=== PATIENT | male | born 1955 | race Caucasian/White ===

== ENCOUNTER 2019-02-26 12:26 | Day surgery (SDC) | payer OTHER ==
[~2019-02-26] VITALS: Ht 182.9 cm; Wt 116.6 kg
--- NOTE | 2019-02-26 14:18 | NUR ---
02/26/19 1418 Yari Riggins 5MM SIGMOID COLON POLYP REMOVED WITH COLD SNARE; UNABLE TO RETRIEVE POLYP. DR. ESTEFANIA RODRIGUEZ.
== END 2019-02-26 14:39 | disposition home or self-care (01) ==
LOC: ORSCSDS 12:26
PROVIDERS: Internal Medicine Gastroenterology
PROC: 0DBN8ZX Excision of Sigmoid Colon, Via Natural or Artificial Opening Endoscopic, Diagnostic (ICD-10-PCS; principal; 2019-02-26 13:45)
DX: Z12.11 Encounter for screening for malignant neoplasm of colon (principal); D37.4 Neoplasm of uncertain behavior of colon; K57.30 Diverticulosis of large intestine without perforation or abscess without bleeding; G47.33 Obstructive sleep apnea (adult) (pediatric); E66.01 Morbid (severe) obesity due to excess calories; Z68.36 Body mass index [BMI] 36.0-36.9, adult; Z79.899 Other long term (current) drug therapy
CPT/HCPCS: J2704; J7120

== ENCOUNTER 2021-11-25 08:47 | Day surgery (SDC) | payer OTHER ==
[~2021-11-25] VITALS: Ht 182.9 cm; Wt 116.3 kg
[~2021-11-25 08:47] MED LIST: ALEVE220 MG PO; ALLO100 PO; Prinivil10 MG PO
--- NOTE | 2021-11-25 10:13 | NUR ---
PT STATES HAVING NO ADVERSE REACTIONS TO ANESTHESIA IN PAST SURGERIES, BUT WANTS IT NOTED THAT "4-5 HOURS AFTER SURGERY, I SWEAT IT OUT AND DRENCH MY CLOTHES AND THE BED BUT NOTHIGN BAD HAPPENS". PT ALSO STATES WILL BRING CPAP MACHINE FROM HOME TO SLEEP WITH ON 11/24/21.
--- NOTE | 2021-11-25 15:25 | NUR ---
TRANSFER OF CARE PATIENT ALERT AND ORIENTED. TOLERATING PO WATER AND CRACKERS. DENIES NAUSEA/VOMITING. DENIES SHORTNESS OF BREATH. SPINAL, SENSATION ABOVE KNEE. DENIES PAIN AT THIS TIME. AQUACEL, MARTHA WRAP, REINA HOSE, SCDS, AND POLAR PACK IN PLACE TO RIGHT LEG. HOME CPAP IN ROOM. PLAN TO DISCHARGE HOME 11/26/21 WHEN PATIENT CLEARS THERAPY. WILL REPORT TO RN ASSUMING CARE AT THIS TIME.
--- NOTE | 2021-11-25 16:29 | NUR ---
THIS NURSE TOOK OVER CARE AT 1500 TODAY.
--- NOTE | 2021-11-26 05:27 | NUR ---
LIKE TO SLEEP A LITTLE LONGER."
[2021-11-26 05:32] LABS: BASOPHILS ABSOLUTE AUTO 0.03 K/mm3 (0.00-0.23); BASOPHILS PERCENT AUTO 0 % (0-2); EOSINOPHILS PERCENT AUTO 0 % (0-6); Hematocrit 39.9 % (37.0-53.0); Hemoglobin 13.7 g/dL (13.5-17.5); IMMATURE GRAN PERCENT AUTO 1 % (0-1); LYMPHOCYTES ABSOLUTE AUTO 1.04 K/mm3 (0.84-5.20); LYMPHOCYTES PERCENT AUTO 8 % (21-46); MONOCYTES ABSOLUTE AUTO 1.21 K/mm3 (0.16-1.47); MONOCYTES PERCENT AUTO 10 % (4-13); Mean Corpuscular HGB 31.5 pg (26.0-34.0); Mean Corpuscular HGB Conc 34.3 g/dL (31.5-36.5); Mean Corpuscular Volume 92 fL (80-100); Mean Platelet Volume 9.7 fL (9.1-12.4); NEUTROPHILS PERCENT AUTO 81 % (41-73); Platelet Count 216 K/mm3 (150-400); RDW Coefficient Variation 12.1 % (11.7-14.2); RDW Standard Deviation 40.7 fL (35.1-46.3); Red Blood Cell Count 4.35 M/mm3 (4.30-5.90); White Blood Cell Count 12.58 K/mm3 (4.00-11.30)
[2021-11-26 06:34] LABS: Anion Gap 10 mmol/L (6-16); Blood Urea Nitrogen 15 mg/dL (8-24); Bun/Creatinine Ratio 17.2 (12.0-20.0); CO2, Blood 24 mmol/L (21-32); Calcium, Blood 8.9 mg/dL (8.5-10.1); Chloride, Blood 105 mmol/L (98-108); Creatinine, Blood 0.87 mg/dL (0.60-1.20); Glomerular Filtration Rate >60 (60-); Glucose, Blood 129 mg/dL (70-99); Magnesium, Blood 2.1 mg/dL (1.6-2.4); Potassium, Blood 4.1 mmol/L (3.5-5.5); Sodium, Blood 139 mmol/L (136-145)
--- NOTE | 2021-11-26 08:07 | NUR ---
11/26/21 0807 Hue Keane VERIFICATIONS: EDIT CHART.
[2021-11-26] MEDS ORDERED: ASPI81CH PO (09:09)
[2021-11-26] MEDS ORDERED: OXYC5 PO (09:10)
[2021-11-26] MEDS ORDERED: SULTRIDS PO (09:10)
[2021-11-26] MEDS ORDERED: PROM25 PO (09:10)
--- NOTE | 2021-11-26 10:11 | NUR ---
DISCHARGE POD 1 R TKA [id number], PT CLEARED THERAPY. HE REPORTS PAIN TOLERABLE PER EMAR. DRESSING REMAINS CDI. TOLERATING PO. IV REMOVED PRIOR TO DISCHARGE. ALL INSTRUCTIONS GONE OVER WITH PATIENT, ALL BELONGINGS SENT.
== END 2021-11-26 09:34 | disposition home or self-care (01) ==
LOC: ORSCMMR 08:47 → ORD 10:45 → ORSCMMR 10:45 → ORD 11:00 → SURS 13:43 → ORSCMMR 11-26 09:34
PROVIDERS: Orthopaedic Surgery
PROC: 0SRC0J9 Replacement of Right Knee Joint with Synthetic Substitute, Cemented, Open Approach (ICD-10-PCS; principal; 2021-11-25 10:00)
PROC: 8E0YXBZ Computer Assisted Procedure of Lower Extremity (ICD-10-PCS; principal; 2021-11-25 10:00)
DX: M17.11 Unilateral primary osteoarthritis, right knee (principal); I10 Essential (primary) hypertension; G47.33 Obstructive sleep apnea (adult) (pediatric); Z85.46 Personal history of malignant neoplasm of prostate; Z79.899 Other long term (current) drug therapy; E66.9 Obesity, unspecified; Z68.34 Body mass index [BMI] 34.0-34.9, adult
CPT/HCPCS: 36415; 73560-RT; 80048; 83735; 85025; 97110; 97161; A9270; C1713; C1776; J0171; J0690; J0735; J1100; J1885; J2250; J2704; J2795; J3010; J7120

== ENCOUNTER 2024-02-13 12:55 | Day surgery (SDC) | payer OTHER ==
[~2024-02-13] VITALS: Ht 182.9 cm; Wt 117.0 kg
[~2024-02-13 12:55] MED LIST changes: +ASPI81CH PO; +Atropine Sulfate 0.1 MG/ML 10ML SYR ONE; +Glycopyrrolate 0.2 MG/ML 1MLVIAL ONE; +Hyoscyamine Sulfate 0.5 MG/ML 1ML Amp ONE; +Lactated Ringer's 1,000 ML IV ONE; +Lidocaine 2% 5 ML SDV ONE; +Lidocaine HCl/Pf 1% 5 ML VIAL ONE; +Methylene Blue 1% 100 MG/10 ML VIAL ONE; +OXYC5 PO; +Ondansetron HCl 2 MG / ML 2ML Vial ONE; +PROM25 PO; +SULTRIDS PO; +ePHEDrine Sulfate 50 MG/ML 1ML Injection ONE
[2024-02-13] MEDS ORDERED: propofoL 50 ML IV ONE ×2 (14:54→15:23)
[2024-02-13] MEDS ORDERED: Lactated Ringer's 1,000 ML IV ONE (15:07)
[2024-02-13 16:12] VITALS: BP 118/83
== END 2024-02-13 16:14 | disposition home or self-care (01) ==
LOC: ORSCSDS 12:55
PROVIDERS: Internal Medicine Gastroenterology
PROC: 0DBN8ZX Excision of Sigmoid Colon, Via Natural or Artificial Opening Endoscopic, Diagnostic (ICD-10-PCS; principal; 2024-02-13 14:15)
DX: Z12.11 Encounter for screening for malignant neoplasm of colon (principal); K63.5 Polyp of colon; K57.30 Diverticulosis of large intestine without perforation or abscess without bleeding; Z86.010 Personal history of colon polyps; I10 Essential (primary) hypertension; G47.33 Obstructive sleep apnea (adult) (pediatric); Z85.46 Personal history of malignant neoplasm of prostate; Z79.899 Other long term (current) drug therapy
CPT/HCPCS: J0461; J1980; J2001; J2405; J2704; J7120; Q9968

== ENCOUNTER 2025-06-26 12:47 | Day surgery (SDC) | payer OTHER ==
[~2025-06-26] VITALS: Ht 182.9 cm; Wt 121.3 kg
[~2025-06-26 12:47] MED LIST changes: -Atropine Sulfate 0.1 MG/ML 10ML SYR ONE; +Balanced Salt Epinephrine Irrigation Solution 500 mL IR SCH; -Glycopyrrolate 0.2 MG/ML 1MLVIAL ONE; -Hyoscyamine Sulfate 0.5 MG/ML 1ML Amp ONE; -Lactated Ringer's 1,000 ML IV ONE; -Lidocaine 2% 5 ML SDV ONE; -Lidocaine HCl/Pf 1% 5 ML VIAL ONE; -Methylene Blue 1% 100 MG/10 ML VIAL ONE; +Moxifloxacin HCL 0.5 MG/0.1 ML 0.4MLSYR LEFTEYE SCH; +Moxifloxacin HCL 0.5 MG/0.1 ML 0.4MLSYR RIGHTEYE SCH; +Ondansetron 4 MG SoluTab MM PRN; -Ondansetron HCl 2 MG / ML 2ML Vial ONE; +PHENYLEPHRINE\\TROPICAMIDE\\TETRACAINE OPHTHALMIC DILATING SOLN LEFTEYE PRN; +PHENYLEPHRINE\\TROPICAMIDE\\TETRACAINE OPHTHALMIC DILATING SOLN RIGHTEYE PRN; +Povidone-Iodine 450 DROP/30 ML Solution LEFTEYE SCH; +Povidone-Iodine 450 DROP/30 ML Solution ONE; +Povidone-Iodine 450 DROP/30 ML Solution RIGHTEYE SCH; +Tetracaine HCl/Pf 0.5% Opth Soln 4 ml ONE; +Triamcinolone Inj Susp 40 MG / ML 1ML Vial INJ SCH; +Triamcinolone Inj Susp 40 MG / ML 1ML Vial ONE; -ePHEDrine Sulfate 50 MG/ML 1ML Injection ONE
--- NOTE | 2025-06-26 13:26 | NUR ---
06/26/25 1326 Sylvia Burnett PT STATES ANXIETY LEVEL IS 1/10 IN PREOP CALL LIGHT IN HAND PT IS ON CONTINUOUS PULSE OX
--- NOTE | 2025-06-26 13:51 | NUR ---
06/26/25 1351 Idalia Gamble 1348 BP:147/81 HR:79 O2:100% RESP:16
[2025-06-26 14:11] VITALS: BP 145/92
--- NOTE | 2025-06-26 14:15 | NUR ---
06/26/[address] AT BEDSIDE
== END 2025-06-26 14:31 | disposition home or self-care (01) ==
LOC: ORSCSDS 12:47
PROVIDERS: Ophthalmology
PROC: 08RJ3JZ Replacement of Right Lens with Synthetic Substitute, Percutaneous Approach (ICD-10-PCS; principal; 2025-06-26 14:30)
DX: H25.813 Combined forms of age-related cataract, bilateral (principal); H52.4 Presbyopia; H40.019 Open angle with borderline findings, low risk, unspecified eye; I10 Essential (primary) hypertension; Z79.899 Other long term (current) drug therapy
CPT/HCPCS: A9270; J3301; V2632

== ENCOUNTER 2025-07-03 07:01 | Day surgery (SDC) | payer OTHER ==
[~2025-07-03] VITALS: Ht 182.9 cm; Wt 121.1 kg
[~2025-07-03 07:01] MED LIST changes: -Balanced Salt Epinephrine Irrigation Solution 500 mL IR SCH; -Moxifloxacin HCL 0.5 MG/0.1 ML 0.4MLSYR LEFTEYE SCH; -Moxifloxacin HCL 0.5 MG/0.1 ML 0.4MLSYR RIGHTEYE SCH; -Ondansetron 4 MG SoluTab MM PRN; -PHENYLEPHRINE\\TROPICAMIDE\\TETRACAINE OPHTHALMIC DILATING SOLN LEFTEYE PRN; -PHENYLEPHRINE\\TROPICAMIDE\\TETRACAINE OPHTHALMIC DILATING SOLN RIGHTEYE PRN; -Povidone-Iodine 450 DROP/30 ML Solution LEFTEYE SCH; -Povidone-Iodine 450 DROP/30 ML Solution RIGHTEYE SCH; -Triamcinolone Inj Susp 40 MG / ML 1ML Vial INJ SCH
--- NOTE | 2025-07-03 07:46 | NUR ---
07/03/25 0746 Sylvia Burnett PT STATES ANXIETY LEVEL IN PREOP IS 0/10 PT HAS CONTINUOUS PULSE ON PT HAS CALL LIGHT IN HAND
[2025-07-03] MEDS ORDERED: Ondansetron 4 MG SoluTab MM PRN (08:20)
--- NOTE | 2025-07-03 08:33 | NUR ---
07/03/25 0833 Idalia Gamble 0830 BP:139/82 HR:66 O2:100% RESP:16
[2025-07-03 08:49] VITALS: BP 138/83
[2025-07-04] MEDS ORDERED: Povidone-Iodine 450 DROP/30 ML Solution LEFTEYE SCH (06:00)
[2025-07-04] MEDS ORDERED: Triamcinolone Inj Susp 40 MG / ML 1ML Vial INJ SCH (06:00)
[2025-07-04] MEDS ORDERED: Moxifloxacin HCL 0.5 MG/0.1 ML 0.4MLSYR LEFTEYE SCH (06:00)
[2025-07-04] MEDS ORDERED: PHENYLEPHRINE\\TROPICAMIDE\\TETRACAINE OPHTHALMIC DILATING SOLN LEFTEYE PRN (06:00)
[2025-07-04] MEDS ORDERED: Balanced Salt Epinephrine Irrigation Solution 500 mL IR SCH (06:00)
== END 2025-07-03 09:04 | disposition home or self-care (01) ==
LOC: ORSCSDS 07:01
PROVIDERS: Ophthalmology
PROC: 08RK3JZ Replacement of Left Lens with Synthetic Substitute, Percutaneous Approach (ICD-10-PCS; principal; 2025-07-03 08:30)
DX: H25.812 Combined forms of age-related cataract, left eye (principal); Z96.1 Presence of intraocular lens; I10 Essential (primary) hypertension; Z79.899 Other long term (current) drug therapy
CPT/HCPCS: A9270; J3301; V2632